=== PATIENT | female | born 1935 | race Caucasian/White ===

== ENCOUNTER 2018-07-07 13:30 | Outpatient (RCR) | payer MEDICARE, BC, SELFPAY | END 2018-07-08 11:15 | LOC: SP 13:30 | PROVIDERS: Family Provider Family Medicine; PCP Family Medicine; Referring Provider Family Medicine; Visit Provider Family Medicine | DX: R47.01 Aphasia (principal) | CPT/HCPCS: 92507; 96105; 96125 ==